=== PATIENT | male | born 1995 | race American Indian/Alaskan Native ===

== ENCOUNTER 2019-02-19 13:38 | Emergency (ER) | payer SELFPAY ==
[2019-02-19] MEDS ORDERED: levETIRAcetam 500 MG in DEXTROSE 5% IN WATER 100 ML IV ONE (14:37)
[2019-02-19] MEDS ORDERED: levETIRAcetam 1000 MG/NS 0.75% 1,000 MG/100 ML BAG IV ONE (14:37)
--- NOTE | 2019-02-19 14:44 | Emergency Department Report ---
ED Seizure HPI - General Chief Complaint: Seizure Stated Complaint: SEIZURE Time Seen by Provider: 02/19/19 14:33 Source: patient, EMS Mode of arrival: Stretcher Limitations: No Limitations - History of Present Illness Initial Comments: 23-year-old male with a past medical history of seizures presents to the hospital with seizure prior to arrival. Patient apparently is compliant with this patient states he is compliant with his Keppra 1500 mg twice a day last dose this morning. Triage states that patient was at [facility] yesterday for seizures. Patient denies and states he was seen here earlier procedure but left prior to evaluation. Medical record reviewed and this is patient's first visit and there is no documented earlier today. Patient has a neurologist affiliated with [facility]. Patient denies any physical pain only complains of being cold. - Related Data Allergies Allergy/AdvReac Type Severity Reaction Status Date / Time ibuprofen Allergy Unknown Verified 02/19/19 14:40 tramadol Allergy Unknown Verified 02/19/19 14:40 ED Review of Systems ROS: Stated complaint: SEIZURE Other details as noted in HPI Comment: All other systems reviewed and negative ED Past Medical Hx - Past Medical History Hx Seizures: Yes - Social History Smoking Status: Current Every Day Smoker Substance Use Type: None ED Physical Exam - General Limitations: No Limitations - Other Other exam information: General: No acute distress Head: Atraumatic Eyes: normal appearance ENT: Moist mucous membranes Neck: Normal appearance, no midline tenderness Chest: Clear to auscultation bilaterally CV: Regular rate and rhythm Abdomen: Soft, normal bowel sounds, nontender, nondistended, no rebound or guarding Back: Normal inspection Extremity: Normal inspection infection, full range of motion Neuro: Alert O x 3, no facial asymmetry, speech clear, no gross motor sensory deficit Psych: Appropriate behavior Skin: No rash ED Course Vital Signs 02/19/19 02/19/19 14:19 15:13 Temperature 98.1 F Pulse Rate 42 L Respiratory 19 15 Rate Blood Pressure 120/92 O2 Sat by Pulse 99 Oximetry ED Medical Decision Making - Lab Data Result diagrams: 02/19/19 15:03 02/19/19 15:03 Lab Results 02/19/19 02/19/19 02/19/19 Range/Units 15:03 15:03 15:12 WBC 8.7 (4.5-11.0) K/mm3 RBC 3.38 L (3.65-5.03) M/mm3 Hgb 11.5 L (11.8-15.2) gm/dl Hct 33.4 L (35.5-45.6) % MCV 99 H (84-94) fl MCH 34 H (28-32) pg MCHC 34 (32-34) % RDW 13.8 (13.2-15.2) % Plt Count 182 (140-440) K/mm3 Sodium 132 L (137-145) mmol/L Potassium 4.5 (3.6-5.0) mmol/L Chloride 97.3 L (98-107) mmol/L Carbon Dioxide 19 L (22-30) mmol/L Anion Gap 20 mmol/L BUN 7 L (9-20) mg/dL Creatinine 0.5 L (0.8-1.5) mg/dL Estimated GFR > 60 ml/min BUN/Creatinine Ratio 14 % Glucose 82 (75-100) mg/dL POC Glucose 83 (70-105) Calcium 9.2 (8.4-10.2) mg/dL Magnesium 1.80 (1.7-2.3) mg/dL - Medical Decision Making [facility] patient states he is compliant with medications. He is started on Keppra 1500 mg twice a day. Referred to his neurologist for further changes. Mild hyponatremia noted. Patient declined normal saline IV and instead wants to be discharged without further treatment. pt has been asking to be d/parth since initial patient contact - Differential Diagnosis seizure, med noncompliance, electrolyte abnl Critical Care Time: No Critical care attestation.: If time is entered above; I have spent that time in minutes in the direct care of this critically ill patient, excluding procedure time. ED Disposition Clinical Impression: Seizure, Hyponatremia Disposition: DC- TO HOME OR SELFCARE Is pt being admited?: No Does the pt Need Aspirin: No Condition: Stable Instructions: Recurrent Seizures Adult (ED), Hyponatremia (ED) Additional Instructions: To your current medications as prescribed. Follow-up with the neurologist. Return if symptoms worsen as indicated by your discharge instructions. Take tylenol as needed for pain. Referrals: PRIMARY CARE,MD [Primary Care Provider] - 3-5 Days your, neurologist [Other] - 3-5 Days Time of Disposition: 16:39
[2019-02-19 15:31] LABS: Hematocrit 33.4 % (35.5-45.6); Hemoglobin 11.5 gm/dl (11.8-15.2); Mean Corpuscular HGB Conc 34 % (32-34); Mean Corpuscular Volume 99 fl (84-94); Platelet Count 182 K/mm3 (140-440); Red Blood Count 3.38 M/mm3 (3.65-5.03); Red Cell Distribution Width 13.8 % (13.2-15.2)
[2019-02-19 15:49] LABS: BUN/Creatinine Ratio 14; Blood Urea Nitrogen 7 mg/dL (9-20); Calcium 9.2 mg/dL (8.4-10.2); Hemolysis Index 4
[2019-02-19 16:50] VITALS: BP 110/78
== END 2019-02-19 16:50 | disposition home or self-care (01) ==
LOC: ED 13:38
DX: R56.9 Unspecified convulsions (principal); E87.1 Hypo-osmolality and hyponatremia; F17.200 Nicotine dependence, unspecified, uncomplicated; Z88.6 Allergy status to analgesic agent
CPT/HCPCS: 36415; 80048; 82962; 83735; 85027; 96374; 96375; 99284; J1953